=== PATIENT | male | born 1990 | race Hispanic/Latino ===

== ENCOUNTER 2017-06-10 01:22 | Inpatient (IN) | payer MEDICAID ==
[2017-06-10 01:23] VITALS: BMI 37.6
[2017-06-10 02:36] LABS: BASO # 0.1 K/uL (0.0-0.2); BASO % 0.6 % (0.0-2.0); EOS # 0.5 K/uL (0.0-0.7); EOS % 5.7 % (0.0-4.0); HEMATOCRIT 40.8 % (35.0-51.0); LYMPH # 3.7 K/uL (1.0-4.3); LYMPH % 41.2 % (20.0-40.0); MEAN CORPUSCULAR HEMOGLOBIN 31.7 pg (27.0-31.0); MEAN CORPUSCULAR HGB CONC 33.7 g/dL (33.0-37.0); MEAN PLATELET VOLUME 7.1 fL (7.2-11.7); MONO # 0.7 K/uL (0.0-0.8); NRBC % 0.1 % (0.0-2.0); RED CELL DISTRIBUTION WIDTH 14.3 % (11.5-14.5); WHITE BLOOD COUNT 8.9 K/uL (4.8-10.8)
[2017-06-10 02:41] LABS: CHLORIDE 101 mmol/L (98-107)
[2017-06-10 02:42] LABS: POTASSIUM 3.9 mmol/L (3.6-5.2); SODIUM 138 mmol/L (132-148)
[2017-06-10 02:44] LABS: ALKALINE PHOSPHATASE 61 U/L (38-126); AST/SGOT 23 U/L (17-59); BILIRUBIN,TOTAL 0.2 mg/dL (0.2-1.3); CARBON DIOXIDE 26 mmol/L (22-30); GFR AFRICAN-AMERICAN > 60; TOTAL PROTEIN 7.6 g/dL (6.3-8.3)
[2017-06-10 02:45] LABS: ALCOHOL SERUM < 10 mg/dl (0-10); ALT/SGPT 55 U/L (21-72); BLOOD UREA NITROGEN 9 mg/dL (9-20); CALCIUM 9.1 mg/dl (8.6-10.4); GLUCOSE,RANDOM 89 mg/dL (75-110)
[2017-06-10 03:11] LABS: RBC URINE 2 /hpf (0-3); URINE BILIRUBIN NEGATIVE (NEGATIVE); URINE BLOOD NEGATIVE (NEGATIVE); URINE COLOR Yellow (YELLOW); URINE GLUCOSE (UA) NORMAL (Normal); URINE KETONE NEGATIVE (NEGATIVE); URINE LEUKOCYTE ESTERASE NEG Leu/uL (Negative); URINE PROTEIN NEGATIVE (NEGATIVE); URINE UROBILINOGEN NORMAL mg/dL (0.2-1.0); WBC URINE 1 /hpf (0-5)
--- NOTE | 2017-06-10 03:50 | C.PDOC ---
History Of Present Illness 26 year old male who presents to the ER with a complaint of suicidal ideation with plan to overdose or cut his wrist. Patient reports he has not taken his psych medications in 3 months; denies physical complaints at this time. Time Seen by Provider: 06/10/17 02:16 Chief Complaint (Nursing): Psychiatric Evaluation History Per: Patient History/Exam Limitations: no limitations Onset/Duration Of Symptoms: Days Current Symptoms Are (Timing): Still Present Suicide/Self Injury Attempted (Context): None Modifying Factor(s): None Associated Symptoms: Suicidal Thoughts, Suicidal Plan Involuntary Hold By: None Recent travel outside of the [place]: No Past Medical History Reviewed: Historical Data, Nursing Documentation, Vital Signs Vital Signs: Last Vital Signs Temp 98.2 F 06/10/17 01:57 Pulse 77 06/10/17 01:57 Resp 14 06/10/17 01:57 BP 106/68 06/10/17 01:57 Pulse Ox 96 06/10/17 04:21 - Medical History PMH: Anxiety, Bipolar Disorder, Depression, Hypercholesterolemia (denied), Post Traumatic Stress Disorder, Schizophrenia Surgical History: No Surg Hx - [facility] Procedures DETOXIFICATION SERVICES FOR SUBSTANCE ABUSE TREATMENT (09/20/16) GROUP RESTRIKE HAMMER OPERATOR FOR SUBSTANCE ABUSE TREATMENT, PSYCHOEDUCATION (06/14/16) GROUP PSYCHOTHERAPY (09/20/16) INDIV RESTRIKE HAMMER OPERATOR FOR SUBSTANCE ABUSE TREATMENT, PSYCHOEDUCATION (07/18/15) INDIV PSYCHOTHERAPY FOR SUBSTANCE ABUSE TREATMENT, SUPPORT (12/06/15) INDIVIDUAL PSYCHOTHERAPY, BEHAVIORAL (08/30/16) INDIVIDUAL PSYCHOTHERAPY, SUPPORTIVE (09/20/16) MEDICATION MANAGEMENT (09/20/16) MEDS MGMT FOR SUBSTANCE ABUSE TREATMENT, METHADONE MAINT (07/18/15) Family History: States: Unknown Family Hx - Social History Hx Tobacco Use: Yes (1 pack a day) Hx Alcohol Use: No Hx Substance Use: Yes - Immunization History Hx Tetanus Toxoid Vaccination: No Hx Influenza Vaccination: Yes Hx Pneumococcal Vaccination: No Review Of Systems Constitutional: Negative for: Fever, Chills Gastrointestinal: Negative for: Nausea, Vomiting, Diarrhea Psych: Positive for: Suicidal ideation (w/ plan) Physical Exam - Physical Exam Appears: Non-toxic, No Acute Distress Skin: Normal Color, Warm, Dry Head: Atraumatic, Normacephalic Oral Mucosa: Moist Chest: Symmetrical Cardiovascular: Rhythm Regular Respiratory: Normal Breath Sounds, No Rales, No Rhonchi, No Wheezing Neurological/Psych: Oriented x3, Normal Speech, Normal Cognition ED Course And Treatment - Laboratory Results Result Diagrams: 06/10/17 02:31 06/10/17 02:31 O2 Sat by Pulse Oximetry: 96 (room air) Pulse Ox Interpretation: Normal Progress Note: Blood work and urinalysis ordered. Crisis notified. PT IS MEDICALLY CLEARED FOR PSYCHIATRIC EVALUATION AND ADMISSION. Pt was evaluated by Crisis counselor Romeo and will be admitted to psychiatry under Dr Glass Disposition - Disposition Disposition: HOSPITALIZED Disposition Time: 04:45 Condition: STABLE Forms: Andrew Alliance (British) - POA Present On Arrival: Cath Associated UTI - Clinical Impression Clinical Impression: Moderate major depression, single episode, Opioid abuse, Cocaine abuse - Scribe Statement The provider has reviewed the documentation as recorded by the Scribandrea Jeong All medical record entries made by the Scribe were at my direction and personally dictated by me. I have reviewed the chart and agree that the record accurately reflects my personal performance of the history, physical exam, medical decision making, and the department course for this patient. I have also personally directed, reviewed, and agree with the discharge instructions and disposition.
[2017-06-10 06:54] VITALS: O2SAT 99
[2017-06-10 08:13] VITALS: BP 128/87; PULSE 81; RESP 18; TEMP 98.4
--- NOTE | 2017-06-10 12:21 | PCM.PSYCH ---
Initial Psychiatric Evaluation - Initial Psychiatric Evaluation Type of Admission: Voluntary Legal Status: Capacity Current Medications: Active Medications Generic Name Dose Route Start Last Admin Trade Name Freq PRN Reason Stop Dose Admin Aripiprazole 5 mg 06/10/17 10:00 06/10/17 11:25 Abilify PO 5 mg DAILY TRAVIS Administration Benztropine Mesylate 2 mg 06/10/17 04:56 Cogentin PO Q6 PRN Extra Pyramidal Symptoms Clonidine HCl 0.1 mg 06/10/17 04:56 Catapres PO Q8 PRN COWS Score More or Equal to 5 Gabapentin 300 mg 06/10/17 10:00 06/10/17 11:24 Neurontin PO 300 mg TID TRAVIS Administration Haloperidol Lactate 5 mg 06/10/17 04:56 Haldol IM Q8 PRN severe Agitation Hydroxyzine HCl 25 mg 06/10/17 04:56 Atarax PO Q6 PRN Anxiety Ibuprofen 400 mg 06/10/17 04:56 Motrin Tab PO Q6 PRN Pain, moderate (4-7) Loperamide HCl 2 mg 06/10/17 04:56 Imodium PO Q8 PRN Diarrhea Mirtazapine 15 mg 06/10/17 22:00 Remeron PO HS TRAVIS Ondansetron HCl 4 mg 06/10/17 04:56 Zofran Tab PO Q8 PRN Nausea/Vomiting Past Psychiatric History - Past Psychiatric History Previous Treatment History: Inpatient Pertinent Medical Hx (Current Medical&Sleep Prob, Allergies): Allergies Allergy/AdvReac Type Severity Reaction Status Date / Time Penicillins Allergy Verified 06/10/17 02:02 Review of Systems - Neurological Neurological: UNREMARKABLE - Psychiatric Psychiatric: Abnormal Sleep Pattern, Anhedonia, Anxiety, Depression, Difficulty Concentrating, Irritability. absent: Hallucinations, Homicidal Ideation, Paranoia, Suicidal Ideation Mental Status Examination - Personal Presentation Personal Presentation: Looks older than stated age - Affect Affect: Constricted - Motor Activity Motor Activity: Calm - Reliability in Providing Information Reliability in Providing Information: Fair - Speech Speech: Organized - Mood Mood: Depressed, Anxious - Formal Thought Process Formal Thought Process: No Impairment - Cognitive Functions Orientation: Person, Place, Situation, Time Sensorium: Alert Estimate of Intelligence: Average Judgement: Intact, as evidence by: Insight regarding need for hospitalization Memory: Recent intact, as evidence by: Ability to recall events of the day, Remote intact, as evidenced by: Abilit to recall sig. 

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
[2017-06-10] MEDS ORDERED: Clindamycin 300 MG in Sodium Chloride 0.9% 50 ML IVPB SCH (12:45)
--- NOTE | 2017-06-10 17:18 | PCM.PYCHDC ---
Mental Status Examination - Mental Status Examination Orientation: Person, Place, Situation, Time Memory: Impaired Mood: Depressed, Anxious Affect: Constricted Speech: Appropriate Attention: WNL Concentration: Poor Association: WNL Fund of Knowledge: WNL Formal Thought Process: No Impairment Suicidal Ideation: No Current Homicidal Ideation?: No Discharge Summary - Discharge Note Reason for Hospitalization: Suicidal thoughts, depression, heroin detox Laboratory Data: Abnormal Lab Results 06/10/17 06/10/17 06/10/17 02:31 02:31 02:45 WBC 8.9 RBC 4.34 L Hgb 13.8 D Hct 40.8 MCV 94.0 MCH 31.7 H MCHC 33.7 RDW 14.3 Plt Count 353 MPV 7.1 L Neut % (Auto) 44.5 L Lymph % (Auto) 41.2 H [place] % (Auto) 8.0 Eos % (Auto) 5.7 H Baso % (Auto) 0.6 Neut # 4.0 Lymph # 3.7 [place] # 0.7 Eos # 0.5 Baso # 0.1 Sodium 138 Potassium 3.9 Chloride 101 Carbon Dioxide 26 Anion Gap 14 BUN 9 Creatinine 0.5 L Est GFR ( Amer) > 60 Est GFR (Non-Af Amer) > 60 Random Glucose 89 Calcium 9.1 Total Bilirubin 0.2 AST 23 ALT 55 Alkaline Phosphatase 61 Total Protein 7.6 Albumin 3.9 Globulin 3.7 Albumin/Globulin Ratio 1.0 Urine Color Yellow Urine Clarity Hazy Urine pH 7.0 Ur Specific [place] 1.025 Urine Protein Negative Urine Glucose (UA) Normal Urine Ketones Negative Urine Blood Negative Urine Nitrate Negative Urine Bilirubin Negative Urine Urobilinogen Normal Ur Leukocyte Esterase Neg Urine WBC (Auto) 1 Urine RBC (Auto) 2 Amorphous Sediment Few H Urine Opiates Screen Urine Methadone Screen Ur Barbiturates Screen Ur Phencyclidine Scrn Ur Amphetamines Screen U Benzodiazepines Scrn U Oth Cocaine Metabols U Cannabinoids Screen Alcohol, Quantitative < 10 06/10/17 02:45 WBC RBC Hgb Hct MCV MCH MCHC RDW Plt Count MPV Neut % (Auto) Lymph % (Auto) [place] % (Auto) Eos % (Auto) Baso % (Auto) Neut # Lymph # [place] # Eos # Baso # Sodium Potassium Chloride Carbon Dioxide Anion Gap BUN Creatinine Est GFR ( Amer) Est GFR (Non-Af Amer) Random Glucose Calcium Total Bilirubin AST ALT Alkaline Phosphatase Total Protein Albumin Globulin Albumin/Globulin Ratio Urine Color Urine Clarity Urine pH Ur Specific [place] Urine Protein Urine Glucose (UA) Urine Ketones Urine Blood Urine Nitrate Urine Bilirubin Urine Urobilinogen Ur Leukocyte Esterase Urine WBC (Auto) Urine RBC (Auto) Amorphous Sediment Urine Opiates Screen Positive H Urine Methadone Screen Negative Ur Barbiturates Screen Negative Ur Phencyclidine Scrn Negative Ur Amphetamines Screen Negative U Benzodiazepines Scrn Positive U Oth Cocaine Metabols Positive H U Cannabinoids Screen Negative Alcohol, Quantitative Consultations:: List each consultation separately and include: 1. Reason for request. 2. Findings. 3. Follow-up Summary of Hospital Course include:: 1. Description of specific treatment plan utilized for patients during their course of treatmen. 2. Summarize the time- course for resolution of acute symptoms and/or regressed behaviors. 3. Describe issues identified and worked on during hospitalization. 4. Describe medication utilized. 5. Describe medical problems identified and treated. 6. Reassessment of suicide risk - Final Diagnosis (DSM 5) Condition upon Discharge: STABLE DSM 5: Bipolar 1 d/o - severe/depressed Opioid withdrawal Opioid use d/o - severe Cocaine use d/o - severe Personality d/o - unspecified with borderline traits Disposition: AGAINST MEDICAL ADVICE
[2017-06-11] MEDS ORDERED: Saccharomyces Boulardi 250 mg Cap PO SCH (06:00)
[2017-06-11] MEDS ORDERED: buPROPion 150 mg/24 Hours XL Tab PO SCH (10:00)
[2017-06-11] MEDS ORDERED: Pantoprazole 40 mg EC Tab PO SCH (10:00)
== END 2017-06-10 14:45 | disposition left against medical advice (07) | DRG 430 ==
LOC: C.ER 01:22 → C.9E 04:52 → C.5E 06:59
PROVIDERS: ADMIT Psychiatry & Neurology Psychiatry; ATTEND Psychiatry & Neurology Psychiatry
DX: F31.4 Bipolar disorder, current episode depressed, severe, without psychotic features (principal); R45.851 Suicidal ideations; F11.23 Opioid dependence with withdrawal; F14.10 Cocaine abuse, uncomplicated; L02.412 Cutaneous abscess of left axilla; F43.10 Post-traumatic stress disorder, unspecified; F17.210 Nicotine dependence, cigarettes, uncomplicated; F60.3 Borderline personality disorder

== ENCOUNTER 2017-09-28 22:30 | Inpatient (IN) | payer MEDICAID, OTHER ==
[2017-09-28 22:30] VITALS: BMI 37.6
--- NOTE | 2017-09-28 23:10 | C.PDOC ---
History Of Present Illness patient states that he has not been taking his schizophrenia medication and wanted to overdose on heroin and xanax. Speaking in complete sentences. Denies any homicidal ideation. Time Seen by Provider: 09/28/17 23:10 Chief Complaint (Nursing): Psychiatric Evaluation History Per: Patient History/Exam Limitations: no limitations Onset/Duration Of Symptoms: Days Current Symptoms Are (Timing): Still Present Suicide/Self Injury Attempted (Context): Ingestion (heroin and xanax) Modifying Factor(s): Narcotics Severity: Moderate Pain Scale Rating Of: 4 Associated Symptoms: Depression, Suicidal Thoughts Involuntary Hold By: None Recent travel outside of the [place]: No Additional History Per: Patient Past Medical History Reviewed: Historical Data, Nursing Documentation, Vital Signs Vital Signs: Last Vital Signs Temp 97.6 F 09/29/17 05:50 Pulse 84 09/29/17 05:50 Resp 14 09/29/17 05:50 BP 96/54 L 09/29/17 05:50 Pulse Ox 97 09/29/17 05:50 - Medical History PMH: Anxiety, Bipolar Disorder, Depression, Hypercholesterolemia (denied), Post Traumatic Stress Disorder, Schizophrenia Denies: Asthma (denied but pt smokes 1 pack daily), Diabetes, Hepatitis, HIV , HTN, Chronic Kidney Disease, Seizures, Sexually Transmitted Disease - [facility] Procedures DETOXIFICATION SERVICES FOR SUBSTANCE ABUSE TREATMENT (09/20/16) GROUP DISPLAY MECHANIC FOR SUBSTANCE ABUSE TREATMENT, PSYCHOEDUCATION (06/14/16) GROUP PSYCHOTHERAPY (09/20/16) INDIV DISPLAY MECHANIC FOR SUBSTANCE ABUSE TREATMENT, PSYCHOEDUCATION (07/18/15) INDIV PSYCHOTHERAPY FOR SUBSTANCE ABUSE TREATMENT, SUPPORT (12/06/15) INDIVIDUAL PSYCHOTHERAPY, BEHAVIORAL (08/30/16) INDIVIDUAL PSYCHOTHERAPY, SUPPORTIVE (09/20/16) MEDICATION MANAGEMENT (09/20/16) MEDS MGMT FOR SUBSTANCE ABUSE TREATMENT, METHADONE MAINT (07/18/15) Family History: States: No Known Family Hx - Social History Hx Tobacco Use: Yes (1 pack a day) Hx Alcohol Use: Yes Hx Substance Use: Yes - Immunization History Hx Tetanus Toxoid Vaccination: No Hx Influenza Vaccination: Yes Hx Pneumococcal Vaccination: No Review Of Systems Constitutional: Negative for: Fever, Chills Eyes: Negative for: Redness ENT: Negative for: Throat Pain Cardiovascular: Negative for: Chest Pain Respiratory: Negative for: Shortness of Breath Gastrointestinal: Negative for: Nausea Musculoskeletal: Negative for: Back Pain Skin: Negative for: Rash Neurological: Negative for: Weakness Psych: Positive for: Depression, Suicidal ideation Physical Exam - Physical Exam Appears: Non-toxic Skin: Warm, Dry Head: Normacephalic Eye(s): bilateral: Normal Inspection Oral Mucosa: Moist Neck: Supple Chest: Symmetrical Cardiovascular: Rhythm Regular Respiratory: No Rales, No Rhonchi, No Wheezing Gastrointestinal/Abdominal: Soft, No Tenderness, No Distention Back: No CVA Tenderness Extremity: Normal ROM Extremity: Bilateral: Atraumatic Neurological/Psych: Oriented x3 Gait: Steady ED Course And Treatment - Laboratory Results Result Diagrams: 09/28/17 23:15 09/28/17 23:15 ECG: Interpreted By Me, Viewed By Me ECG Rhythm: Sinus Rhythm (87), 1st Degree HB, Nonspecific Changes O2 Sat by Pulse Oximetry: 97 Pulse Ox Interpretation: Normal - Radiology CXR: Interpreted by Me, Viewed By Me Progress Note: 3am vitals stable, arousable. 5:20 am arousable, vitals stable, no complaints. awaiting psych eval Disposition Discussed With DrJuventino: Irene Glass Comment: accepted the pt on her service and took over the care at 6:40 AM Doctor Will See Patient In The: Hospital Counseled Patient/Family Regarding: Studies Performed, Diagnosis - Disposition Disposition: HOSPITALIZED Disposition Time: 23:10 Condition: FAIR Forms: [facility] ([place]ux[place]ish) - POA Present On Arrival: None - Clinical Impression Clinical Impression: Depression, Opioid abuse Decision To Admit - Pt Status Changed To: Hospital Disposition Of: Inpatient - Admit Certification Admit to Inpatient:: After my assessment, the patient will require hospitalization for at least two midnights. This is because of the severity of symptoms shown, intensity of services needed, and/or the medical risk in this patient being treated as an outpatient. - InPatient: Physician Admission Certification: I certify that this patient requires 2 or more midnights of care for the following reason:: After my assessment, the patient will require hospitalization for at least two midnights. This is because of the severity of symptoms shown, intensity of services needed, and/or the medical risk in this patient being treated as an outpatient. - . Bed Request Type: Psychiatry Admitting Physician: Irene Glass Patient Diagnosis: Depression, Opioid abuse
[2017-09-28 23:21] LABS: BASO # 0.1 K/uL (0.0-0.2); BASO % 0.6 % (0.0-2.0); EOS # 0.3 K/uL (0.0-0.7); EOS % 3.4 % (0.0-4.0); HEMOGLOBIN 13.8 g/dL (12.0-18.0); LYMPH # 4.5 K/uL (1.0-4.3); LYMPH % 48.3 % (20.0-40.0); MEAN CELL VOLUME 94.6 fL (80.0-94.0); MEAN CORPUSCULAR HEMOGLOBIN 33.4 pg (27.0-31.0); MEAN CORPUSCULAR HGB CONC 35.3 g/dL (33.0-37.0); MEAN PLATELET VOLUME 6.8 fL (7.2-11.7); MONO # 0.7 K/uL (0.0-0.8); MONO % 7.6 % (0.0-10.0); NEUT # 3.7 K/uL (1.8-7.0); NEUT % 40.1 % (50.0-75.0); NRBC % 0.1 % (0.0-2.0); RBC 4.12 Mil/uL (4.40-5.90); RED CELL DISTRIBUTION WIDTH 13.8 % (11.5-14.5); WHITE BLOOD COUNT 9.2 K/uL (4.8-10.8)
[2017-09-28 23:31] LABS: ALB/GLOB RATIO 1.4 (1.0-2.1); ALBUMIN 4.2 g/dL (3.5-5.0); ALT/SGPT 54 U/L (21-72); AST/SGOT 38 U/L (17-59); BLOOD UREA NITROGEN 17 mg/dL (9-20); CALCIUM 8.9 mg/dl (8.6-10.4); GFR AFRICAN-AMERICAN > 60; GFR NON-AFRICAN AMERICAN > 60
[2017-09-28 23:34] LABS: BARBITURATES, UR NEGATIVE (NEGATIVE); PHENCYCLIDINE, UR NEGATIVE (NEGATIVE)
[2017-09-28 23:40] LABS: BENZODIAZEPINES, UR POSITIVE (NEGATIVE); OPIATES, UR POSITIVE (NEGATIVE)
[2017-09-29 04:53] LABS: ACETAMINOPHEN < 10.0 ug/mL (10.0-30.0); SALICYLATE < 1.0 mg/dL 1
[2017-09-29] MEDS ORDERED: buPROPion 150 mg/24 Hours XL Tab PO SCH (10:00)
--- NOTE | 2017-09-29 14:34 | PCM.BM ---
<Kami Singleton - Last Filed: 09/29/17 14:32> Treatment Plan Problems - Problems identified on initial assessmt Substance Abuse Date Initiated: 09/29/17 Time Initiated: 09:00 Assessment reference: NA Status: Active Treatment assets and liabiliti Patient Assests: cooperative, resourceful, ADL independent Patient Liabilities: live alone, substance abuse (Heroin and Xanax) - Milieu Protocol Maintain good personal hygiene: daily Encourage regular showers, daily Remind patient to perform daily oral care, daily Assist patient to perform ADL's (Self) Conduct patient checks and document Observation sheet: Q15 minutes (Safety) Maintain personal safety: every shift Educate patient to report safety concerns to staff, every shift Monitor environment for contraband/sharps Medication safety: Monitor for expected outcome, potential side effects: every shift, Assess barriers to learning: every shift, Assess readiness for medication education: every shift <VikramDione - Last Filed: 09/30/17 11:17> Family Contact Family involvement: Famliy/SO not involved - Goals for Treatment Patient goals for treatment: "I want to go to a methadone clinic." Discharge/Continuing Care - Education Needs Education Needs: Patient Medication, Patient Coping Skills, Patient Community resources - Discharge Discharge Criteria: Tolerates medication w/o severe side effects, No longer exhibiting s/s of withdrawal, Reduction of target symptoms Discharge to:: Home - Treatment Team Participation Discussed with Family/SO: No Was Patient/Family/SO present at Treatment Team Meeting: Yes <Tavia Nguyen - Last Filed: 10/01/17 12:42> - Diagnosis (1) Opioid abuse Status: Acute Interventions: 10/01/17 12:42 * Assess 7x/week regarding severity of withdrawal * Educate regarding risks, benefits, side effects and alternatives of medications * Use Motivational Interviewing for abstinence * Use CBT for relapse prevention * Medication management for withdrawal symptoms * Encourage medication assisted treatment * (2) Bipolar disorder Status: Acute Interventions: 10/01/17 12:42 * Assess/adjust medications daily and /or as needed * See patient on an individual basis 7x/week to assess level of manic behaviors and stability * Discuss risks, benefits, side effects and alternatives of medications * (3) Cocaine abuse Status: Acute Interventions: 10/01/17 12:42 * Assess 7x/week regarding severity of withdrawal * Educate regarding risks, benefits, side effects and alternatives of medications * Use Motivational Interviewing for abstinence * Use CBT for relapse prevention * Medication management for withdrawal symptoms * Encourage medication assisted treatment *
--- NOTE | 2017-09-29 20:56 | CARD ---
APPROVED REPORT EKG Measurement Heart [id number] <Conclusion> Normal sinus rhythm Normal ECG
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
[2017-09-30 08:32] VITALS: RESP 16; TEMP 97.5; O2SAT 98
--- NOTE | 2017-09-30 17:40 | PCM.PYCHPN ---
Psychiatric Progress Note - Psychiatric Progress Note Patient seen today, length of contact: 16 min Patient Chief Complaint: "I am anxious" Problems Identified/Issues Discussed: The pt is seen, chart reviewed, case discussed with staff. The pt is compliant with medications and reports no side-effects. Symptoms are improving but needs more time to stabilize. After care discussed, support and psychoeducation given. He asked for a letter for his court date and probation as he didn't want to lose his school. Still easily irate and goes from zero to ten quickly, impatient and offended easily, entitled at times. Medication Change: Yes (detox changes daily) Medical Record Reviewed: Yes Mental Status Examination - Cognitive Function Orientation: Person, Place, Situation, Time Memory: Intact Attention: WNL Concentration: WNL Association: WNL Fund of Knowledge: WNL - Mood Mood: Depressed, Anxious - Affect Affect: Constricted - Speech Speech: Appropriate - Formal Thought Process Formal Thought Process: No Impairment - Suicidal Ideation Suicidal Ideation: No - Homicidal Ideation Homicidal Ideation: No Goal/Treatment Plan - Goal/Treatment Plan Need for Continued Stay: Discharge may exacerbated symptoms, Severe functional impairment Progress Toward Problem(s) and Goals/Treatment Plan: Methadone and librium detox Wellbutrin is held due to s/z risk Remeron for depression As needed medications Gabapentin for augmentation All risks, benefits and alternatives of medications, including no medications, discussed and the patient understood and agreed. Attend groups and activities Supportive therapy and psychoeducation [place] for abstinence CBT for relapse prevention Encourage MAT Refer to rehab or IOP Attend self-help groups as well Estimated Date of D/C: 10/03/17
--- NOTE | 2017-10-01 20:04 | PCM.PYCHPN ---
Psychiatric Progress Note - Psychiatric Progress Note Patient seen today, length of contact: 15 minutes Patient Chief Complaint: Can I get more methadone. Problems Identified/Issues Discussed: Patient seen, chart reviewed, case discussed with the staff. Issues related to illness and treatment were discussed with the patient. Reported compliant with treatment with no adverse affects. Requesting more methadone. Also requesting for prazosin, patient was getting prazosin during his previous admissions. Confirmed and started prazosin 1 mg at bedtime. Aftercare discussed with the patient. Patient wants to go to [facility] follow-up care after discharge from the hospital. Risk time of evaluation, patient was awake alert oriented 3, had no delusions, no auditory or visual hallucinations, no suicidal ideations or homicidal ideations. Medical Problems: Asthma Diagnostic Results: Reviewed DSM 5 Symptoms Update: Improving with treatment Medication Change: Yes (Started prazosin 1 mg at bedtime) Medical Record Reviewed: Yes Mental Status Examination - Cognitive Function Orientation: Person, Place, Situation, Time Memory: Intact Attention: WNL Concentration: WNL Association: WNL Fund of Knowledge: [facility] Decription of patient's judgement and insights: Fair - Mood Mood: Anxious - Affect Affect: Other (Appropriate) - Speech Speech: Appropriate - Formal Thought Process Formal Thought Process: No Impairment Psychotic Thoughts and Behaviors: None - Suicidal Ideation Suicidal Ideation: No - Homicidal Ideation Homicidal Ideation: No Goal/Treatment Plan - Goal/Treatment Plan Need for Continued Stay: Remain at risks for inpatient hospitalization, Discharge may exacerbated symptoms, Severe functional impairment Progress Toward Problem(s) and Goals/Treatment Plan: Patient education Supportive therapy Motivational interview for abstinence CBT for relapse prevention Continue treatment as before Estimated Date of D/C: 10/03/17 - Smoking Cessation Smoking Cessation Initiated: No
[2017-10-02] MEDS ORDERED: DiphenhydrAMINE 50 mg/ml Inj ONE (11:22)
[2017-10-02] MEDS ORDERED: DiphenhydrAMINE 50 mg/ml Inj IM STA (11:27)
--- NOTE | 2017-10-02 14:00 | PCM.PYCHPN ---
Psychiatric Progress Note - Psychiatric Progress Note Patient seen today, length of contact: 15 minutes Patient Chief Complaint: I still feeling anxiety. Problems Identified/Issues Discussed: Patient seen, chart reviewed, case discussed with the staff. Issues related to illness and treatment were discussed with the patient. Reported compliant with treatment with no adverse affects. Patient reported still feeling anxious. It appears that patient has drug seeking behavior. Today patient was asking for Benadryl and Cogentin. While nurse was preferring medication, patient became angry, started cursing and threatening psychiatrist and staff. Called security. Later patient became calm. Aftercare discussed with the patient. Patient wants to go to [facility] follow-up care after discharge from the hospital. Risk time of evaluation, patient was awake alert oriented 3, had no delusions, no auditory or visual hallucinations, no suicidal ideations or homicidal ideations. Medical Problems: Asthma Diagnostic Results: Reviewed DSM 5 Symptoms Update: Improving with treatment Medication Change: No Medical Record Reviewed: Yes Mental Status Examination - Cognitive Function Orientation: Person, Place, Situation, Time Memory: Intact Attention: WNL Concentration: WNL Association: WN Fund of Knowledge: [facility] Decription of patient's judgement and insights: Fair - Mood Mood: Anxious - Affect Affect: Other (Appropriate) - Speech Speech: Appropriate - Formal Thought Process Formal Thought Process: No Impairment Psychotic Thoughts and Behaviors: None - Suicidal Ideation Suicidal Ideation: No - Homicidal Ideation Homicidal Ideation: No Goal/Treatment Plan - Goal/Treatment Plan Need for Continued Stay: Remain at risks for inpatient hospitalization, Discharge may exacerbated symptoms, Severe functional impairment Progress Toward Problem(s) and Goals/Treatment Plan: Patient education Supportive therapy Motivational interview for abstinence CBT for relapse prevention Continue treatment as before. Patient wants to go to [facility] after discharge from the hospital for follow-up care. Estimated Date of D/C: 10/03/17 - Smoking Cessation Smoking Cessation Initiated: No
[2017-10-02 16:01] VITALS: BP 116/71; PULSE 108
[2017-10-02] MEDS ORDERED: Aluminum Hydroxide/Magnesium Hydroxide Susp (30 mL) PO ONE (16:35)
== END 2017-10-03 05:40 | disposition home or self-care (01) | DRG 430 ==
LOC: C.ER 22:30 → C.5E 09-29 06:46
PROVIDERS: ADMIT Psychiatry & Neurology Psychiatry; ATTEND Psychiatry & Neurology Psychiatry
PROC: GZ3ZZZZ Medication Management (ICD-10-PCS; principal; 2017-09-29)
PROC: HZ89ZZZ Medication Management for Substance Abuse Treatment, Other Replacement Medication (ICD-10-PCS; 2017-09-29)
PROC: HZ2ZZZZ Detoxification Services for Substance Abuse Treatment (ICD-10-PCS; 2017-09-29)
PROC: GZHZZZZ Group Psychotherapy (ICD-10-PCS; 2017-09-29)
PROC: GZ56ZZZ Individual Psychotherapy, Supportive (ICD-10-PCS; 2017-09-29)
DX: F31.30 Bipolar disorder, current episode depressed, mild or moderate severity, unspecified (principal); F11.220 Opioid dependence with intoxication, uncomplicated; F14.10 Cocaine abuse, uncomplicated; F31.9 Bipolar disorder, unspecified; F41.9 Anxiety disorder, unspecified; J45.909 Unspecified asthma, uncomplicated; F60.3 Borderline personality disorder; F60.2 Antisocial personality disorder; F17.210 Nicotine dependence, cigarettes, uncomplicated; Z76.5 Malingerer [conscious simulation]; Z81.8 Family history of other mental and behavioral disorders

== ENCOUNTER 2018-01-10 06:45 | Inpatient (IN) | payer MEDICAID, OTHER ==
[2018-01-10 06:45] VITALS: BMI 37.6
[2018-01-10 06:52] VITALS: O2SAT 97
[2018-01-10 07:38] LABS: BASO # 0.1 K/uL (0.0-0.2); BASO % 0.8 % (0.0-2.0); EOS # 0.2 K/uL (0.0-0.7); EOS % 1.7 % (0.0-4.0); HEMOGLOBIN 12.7 g/dL (12.0-18.0); LYMPH # 7.5 K/uL (1.0-4.3); LYMPH % 68.8 % (20.0-40.0); MEAN CELL VOLUME 93.1 fL (80.0-94.0); MEAN CORPUSCULAR HGB CONC 35.5 g/dL (33.0-37.0); MEAN PLATELET VOLUME 6.8 fL (7.2-11.7); MONO % 8.7 % (0.0-10.0); NEUT # 2.2 K/uL (1.8-7.0); NRBC % 0.1 % (0.0-2.0); RBC 3.85 Mil/uL (4.40-5.90); RED CELL DISTRIBUTION WIDTH 14.5 % (11.5-14.5); WHITE BLOOD COUNT 10.9 K/uL (4.8-10.8)
[2018-01-10 07:43] LABS: URINE BILIRUBIN NEGATIVE (NEGATIVE); URINE BLOOD NEGATIVE (NEGATIVE); URINE CLARITY Hazy (Clear); URINE COLOR Amber (YELLOW); URINE GLUCOSE (UA) NORMAL (Normal); URINE LEUKOCYTE ESTERASE NEG Leu/uL (Negative); URINE PROTEIN NEGATIVE (NEGATIVE)
[2018-01-10 08:02] LABS: ALB/GLOB RATIO 1.1 (1.0-2.1); ALBUMIN 3.7 g/dL (3.5-5.0); ALT/SGPT 75 U/L (21-72); AST/SGOT 42 U/L (17-59); BLOOD UREA NITROGEN 10 mg/dL (9-20); CALCIUM 8.4 mg/dl (8.6-10.4); GFR AFRICAN-AMERICAN > 60; GFR NON-AFRICAN AMERICAN > 60
[2018-01-10 08:24] LABS: BARBITURATES, UR NEGATIVE (NEGATIVE); PHENCYCLIDINE, UR NEGATIVE (NEGATIVE)
[2018-01-10 09:01] LABS: BENZODIAZEPINES, UR POSITIVE (NEGATIVE); OPIATES, UR POSITIVE (NEGATIVE)
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
--- NOTE | 2018-01-10 12:17 | PCM.BM ---
<Natalya Walton - Last Filed: 01/10/18 12:15> Treatment Plan Problems - Problems identified on initial assessmt Depression Date Initiated: 01/10/18 Time Initiated: 12:15 Assessment reference: NA Status: Active Substance Abuse Date Initiated: 01/10/18 Time Initiated: 12:15 Assessment reference: NA Status: Active Treatment assets and liabiliti Patient Assests: adapts well, cooperative, resourceful, self-reliant, ADL independent, physically healthy, negotiates basic needs, cognitively intact Patient Liabilities: live alone (Lives with girlfriend), financial problems, substance abuse (Hx Cocaine, Opiates), medical problems - Milieu Protocol Maintain good personal hygiene: daily Encourage regular showers, daily Remind patient to perform daily oral care, daily Assist patient to perform ADL's (Self) Conduct patient checks and document Observation sheet: Q15 minutes (Safety) Maintain personal safety: every shift Educate patient to report safety concerns to staff, every shift Monitor environment for contraband/sharps Medication safety: Monitor for expected outcome, potential side effects: every shift, Assess barriers to learning: every shift, Assess readiness for medication education: every shift <Juliocesar Alejandro - Last Filed: 01/11/18 10:54> - Diagnosis (1) Bipolar disorder Status: Acute Interventions: 01/11/18 10:54 * Assess/adjust medications daily and /or as needed * See patient on an individual basis 7x/week to assess level of manic behaviors and stability * Discuss risks, benefits, side effects and alternatives of medications * (2) Opioid abuse Status: Acute Interventions: 01/11/18 10:54 * Assess 7x/week regarding severity of withdrawal * Educate regarding risks, benefits, side effects and alternatives of medications * Use Motivational Interviewing for abstinence * Use CBT for relapse prevention * Medication management for withdrawal symptoms * Encourage medication assisted treatment * <Mare Banda - Last Filed: 01/11/18 17:19> Family Contact Family involvement: Patient does not wish Family/SO involvement Family contact: Patient declines to allow family contact at present - Goals for Treatment Patient goals for treatment: "I want to go to a rehab program." Discharge/Continuing Care - Education Needs Education Needs: Patient Medication, Patient Coping Skills, Patient Community resources - Discharge Discharge Criteria: Free of Suicidal thoughts, Normal sleep pattern, Ability to care for self, No longer exhibiting s/s of withdrawal, Reduction of target symptoms Discharge to:: Substance Abuse Rehab - Treatment Team Participation Discussed with Family/SO: No Was Patient/Family/SO present at Treatment Team Meeting: Yes
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
[2018-01-10 20:37] LABS: HEPATITIS B SURFACE AG Negative (NEGATIVE)
[2018-01-10 20:43] LABS: HEPATITIS A IGM NEGATIVE (NEGATIVE); HEPATITIS B CORE AB NEGATIVE (NEGATIVE)
[2018-01-10 22:02] LABS: HEPATITIS C ANTIBODY REACTIVE (NEGATIVE)
[2018-01-10] MEDS: Silver Sulfadiazine 1% Cream (20 gm) TOP SCH (23:13)
[2018-01-11] MEDS ORDERED: Aritificial Tears (15ml) OU PRN (00:16)
[2018-01-11] MEDS: Silver Sulfadiazine 1% Cream (20 gm) TOP SCH ×3 (00:54→17:20)
[2018-01-11 06:39] VITALS: RESP 18
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
[2018-01-11] MEDS ORDERED: Emtricitabine-Tenofovir 200 mg-300 mg Tab PO SCH (10:00)
[2018-01-11] MEDS ORDERED: Multiple Vitamins Tab PO SCH (10:00)
[2018-01-12 06:32] VITALS: BP 100/60; PULSE 65; TEMP 97.6
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
--- NOTE | 2018-01-12 10:14 | PCM.PYCHPN ---
Psychiatric Progress Note - Psychiatric Progress Note Medication Change: Yes Medical Record Reviewed: Yes Mental Status Examination - Cognitive Function Orientation: Person, Place, Situation, Time - Mood Mood: Depressed, Anxious - Affect Affect: Broad - Formal Thought Process Formal Thought Process: No Impairment - Homicidal Ideation Homicidal Ideation: No Goal/Treatment Plan - Goal/Treatment Plan Progress Toward Problem(s) and Goals/Treatment Plan: CBT for relapse prevention Encourage MAT Refer to rehab or IOP All risks, benefits and alternatives of medications, including no medications, discussed and the patient understood and agreed. Attend groups and activities Supportive therapy and psychoeducation [place] for abstinence Attend self-help groups as well Methadone taper As needed medications Gabapentin for augmentation Trazodone Ativan 1 mg prn
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
[2018-01-13] MEDS ORDERED: Pneumococcal 23-Valent Vaccine IM ONE (10:00)
== END 2018-01-12 10:13 | disposition left against medical advice (07) | DRG 430 ==
LOC: C.ER 06:45 → C.5E 11:11
PROVIDERS: ADMIT Psychiatry & Neurology Psychiatry; ATTEND Psychiatry & Neurology Psychiatry
PROC: GZ3ZZZZ Medication Management (ICD-10-PCS; principal; 2018-01-10)
PROC: GZHZZZZ Group Psychotherapy (ICD-10-PCS; 2018-01-10)
PROC: GZ56ZZZ Individual Psychotherapy, Supportive (ICD-10-PCS; 2018-01-10)
PROC: HZ2ZZZZ Detoxification Services for Substance Abuse Treatment (ICD-10-PCS; 2018-01-10)
PROC: HZ59ZZZ Individual Psychotherapy for Substance Abuse Treatment, Supportive (ICD-10-PCS; 2018-01-10)
DX: F31.63 Bipolar disorder, current episode mixed, severe, without psychotic features (principal); F11.23 Opioid dependence with withdrawal; F14.20 Cocaine dependence, uncomplicated; B18.2 Chronic viral hepatitis C; R45.851 Suicidal ideations; F43.10 Post-traumatic stress disorder, unspecified; F41.0 Panic disorder [episodic paroxysmal anxiety]; F60.2 Antisocial personality disorder; F60.3 Borderline personality disorder; F17.210 Nicotine dependence, cigarettes, uncomplicated; F20.9 Schizophrenia, unspecified; Z91.14 Patient's other noncompliance with medication regimen

== ENCOUNTER 2018-02-22 21:02 | Inpatient (IN) | payer MEDICAID ==
[2018-02-22 21:09] VITALS: BMI 27.8
[2018-02-22 21:17] VITALS: O2SAT 97
--- NOTE | 2018-02-22 21:51 | C.PDOC ---
History Of Present Illness 27yo male, history of schizophrenia, on multiple medications as prescribed by [facility], presents to ED for evaluation of feeling anxious. Patient states his medications "are not working" so he stopped using them 2 weeks ago, and now reports auditory hallucinations. Patient reports people are following him. He admits to using cocaine and heroin in an attempt to overdose; he does report suicidal ideation but denies any homicidal ideation. Patient requesting Ativan "to come down." No fever, chills, chest pain, shortness of breath and offers no other medical complaints. Time Seen by Provider: 02/22/18 21:25 Chief Complaint (Nursing): Psychiatric Evaluation History Per: Patient History/Exam Limitations: no limitations Modifying Factor(s): Narcotics, Cocaine Associated Symptoms: Anxiety, Paranoia, Suicidal Thoughts Past Medical History Reviewed: Historical Data, Nursing Documentation, Vital Signs Vital Signs: Last Vital Signs Temp 98.6 F 02/22/18 23:48 Pulse 90 02/22/18 23:48 Resp 14 02/22/18 23:48 BP 114/72 02/22/18 23:48 Pulse Ox 97 02/22/18 23:48 - Medical History PMH: Anxiety, Bipolar Disorder, Depression, Hepatitis (C), Hypercholesterolemia (denied), Post Traumatic Stress Disorder, Schizophrenia, Seizures (one after Benzo withdrawal.) Denies: Asthma (denied but pt smokes 1 pack daily), Diabetes, HIV, HTN, Chronic Kidney Disease, Sexually Transmitted Disease Surgical History: No Surg Hx - [facility] Procedures DETOXIFICATION SERVICES FOR SUBSTANCE ABUSE TREATMENT (01/10/18) GROUP RABBIT BREEDER FOR SUBSTANCE ABUSE TREATMENT, PSYCHOEDUCATION (06/14/16) GROUP PSYCHOTHERAPY (01/10/18) INDIV RABBIT BREEDER FOR SUBSTANCE ABUSE TREATMENT, PSYCHOEDUCATION (07/18/15) INDIV PSYCHOTHERAPY FOR SUBSTANCE ABUSE TREATMENT, SUPPORT (01/10/18) INDIVIDUAL PSYCHOTHERAPY, BEHAVIORAL (08/30/16) INDIVIDUAL PSYCHOTHERAPY, SUPPORTIVE (01/10/18) MEDICATION MANAGEMENT (01/10/18) MEDS MGMT FOR SUBSTANCE ABUSE TREATMENT, METHADONE MAINT (07/18/15) MEDS MGMT FOR SUBSTANCE ABUSE TREATMENT, OTH REPL MED (09/29/17) Family History: States: Unknown Family Hx - Social History Hx Tobacco Use: Yes (1 pack a day) Hx Alcohol Use: Yes Hx Substance Use: Yes (heroine and cocaine) - Immunization History Hx Tetanus Toxoid Vaccination: No Hx Influenza Vaccination: Yes Hx Pneumococcal Vaccination: No Review Of Systems Constitutional: Negative for: Fever, Chills Cardiovascular: Negative for: Chest Pain Respiratory: Negative for: Shortness of Breath Gastrointestinal: Negative for: Abdominal Pain Psych: Positive for: Anxiety, Depression, Suicidal ideation, Other (auditory hallucination) Physical Exam - Physical Exam Appears: Non-toxic, No Acute Distress, Other (calm and cooperative) Skin: Warm, Dry Head: Atraumatic, Normacephalic Eye(s): bilateral: PERRL, EOMI Oral Mucosa: Moist Neck: Normal ROM, Supple Chest: Symmetrical Cardiovascular: Rhythm Regular Respiratory: Normal Breath Sounds Gastrointestinal/Abdominal: Soft, No Tenderness Extremity: Normal ROM, No Pedal Edema, No Deformity Neurological/Psych: Oriented x3, Normal Speech, Normal Cognition, Normal Motor, Normal Sensation, Other (no active psychosis; +approrpiate response to questions.) ED Course And Treatment - Laboratory Results Result Diagrams: 02/22/18 21:59 02/22/18 21:59 Lab Interpretation: No Acute Changes O2 Sat by Pulse Oximetry: 97 (RA) Pulse Ox Interpretation: Normal Progress Note: Patient is medically cleared for psychiatric admission. Medical Decision Making Medical Decision Making: Impression: Anxiety Plan: -- Labs -- Urinalysis -- 1:1 observation Disposition - Disposition Disposition: HOSPITALIZED Disposition Time: 00:02 Condition: STABLE - POA Present On Arrival: None - Clinical Impression Clinical Impression: Cocaine abuse, Opioid abuse, Schizophrenia, Single major depressive episode, severe, with psychosis - Scribe Statement The provider has reviewed the documentation as recorded by the Randibe (Sheila Swenson) Provider Attestation: All medical record entries made by the Randibandrea were at my direction and personally dictated by me. I have reviewed the chart and agree that the record accurately reflects my personal performance of the history, physical exam, medical decision making, and the department course for this patient. I have also personally directed, reviewed, and agree with the discharge instructions and disposition.
[2018-02-22 22:03] LABS: BASO % 0.4 % (0.0-2.0); EOS # 0.1 K/uL (0.0-0.7); LYMPH # 3.6 K/uL (1.0-4.3); LYMPH % 39.8 % (20.0-40.0); MEAN CELL VOLUME 92.7 fL (80.0-94.0); MEAN CORPUSCULAR HEMOGLOBIN 31.6 pg (27.0-31.0); MEAN CORPUSCULAR HGB CONC 34.1 g/dL (33.0-37.0); MEAN PLATELET VOLUME 7.1 fL (7.2-11.7); MONO # 0.7 K/uL (0.0-0.8); MONO % 7.9 % (0.0-10.0); NEUT # 4.6 K/uL (1.8-7.0); NEUT % 50.9 % (50.0-75.0); NRBC % 0.2 % (0.0-2.0); RBC 4.83 Mil/uL (4.40-5.90); RED CELL DISTRIBUTION WIDTH 14.6 % (11.5-14.5); WHITE BLOOD COUNT 9.1 K/uL (4.8-10.8)
[2018-02-22 22:05] LABS: HEMOGLOBIN 15.3 g/dL (12.0-18.0)
[2018-02-22 22:14] LABS: URINE BACTERIA RARE (<OCC); URINE BILIRUBIN NEGATIVE (NEGATIVE); URINE BLOOD NEGATIVE (NEGATIVE); URINE CLARITY Hazy (Clear); URINE COLOR Yellow (YELLOW); URINE GLUCOSE (UA) NORMAL (Normal); URINE LEUKOCYTE ESTERASE NEG Leu/uL (Negative); URINE PROTEIN NEGATIVE (NEGATIVE); URINE UROBILINOGEN NORMAL mg/dL (0.2-1.0)
[2018-02-22 22:22] LABS: BARBITURATES, UR NEGATIVE (NEGATIVE); BENZODIAZEPINES, UR NEGATIVE (NEGATIVE); PHENCYCLIDINE, UR NEGATIVE (NEGATIVE)
[2018-02-22 22:23] LABS: OPIATES, UR POSITIVE (NEGATIVE)
[2018-02-22 22:26] LABS: ALB/GLOB RATIO 1.3 (1.0-2.1); ALT/SGPT 78 U/L (21-72); AST/SGOT 63 U/L (17-59); BLOOD UREA NITROGEN 18 mg/dL (9-20); CALCIUM 9.7 mg/dl (8.6-10.4); GFR AFRICAN-AMERICAN > 60; GFR NON-AFRICAN AMERICAN > 60
[2018-02-23 06:13] VITALS: RESP 18
--- NOTE | 2018-02-23 10:45 | PCM.PSYCH ---
Initial Psychiatric Evaluation - Initial Psychiatric Evaluation Type of Admission: Voluntary Legal Status: Capacity Chief Complaint (in patient's own words): "I am very depressed" History of Present Illness and Precipitating Events: The pt is seen, chart reviewed and case discussed He is well-known to the underwriter solicitation director from several previous admissions. He is a 27 yo WM, single, no child, highly educated but unemployed and homeless currently - stays with his mother and [id number] girlfriend who is now but he is not sure if from him, as she allegedly prostitutes for cocaine and opiates. PS. His mother also uses drugs. He says he has been on a cocaine, heroin and xanax binge again for a while. He was discharged from [facility] Methadone program after missing 3 days. He now uses 25 bags intranasal heroin, 1 gm cocaine (intranasal), 1 pint alcohol , 4 mg xanax (last use 2 days ago, utox negative), and 1 ppd cigarette. Denies all others. He reports many depressive sxs including suicidal ideation but he contracts for safety and will follow his safety plan. He also admits to feeling paranoid but he is aware that this is not normal. It is very likely due to his heavy drug use. Past psych history: bipolar type 1, polysubstance use d/o, suicide attempt. Patient has history of 7+ prior psychiatric hospitalizations, including other hospitals. PMHx: ACL tear, recent weight loss, asthma, Hep C, disc hernia, weight loss. Family history: Father and brother had opioid use disorder, depression and reportedly committed suicide. Social history: Single, has no child, no legal issues now but had in the past. Current Medications: Active Medications Generic Name Dose Route Start Last Admin Trade Name Freq PRN Reason Stop Dose Admin Chlordiazepoxide 0 mg 02/23/18 12:00 Librium PO 02/27/18 11:59 Q6 TRAVIS Taper Clonidine HCl 0.1 mg 02/23/18 10:43 Catapres PO Q4H PRN Symptoms of alcohol withdrawl Folic Acid 1 mg 02/23/18 10:45 Folic Acid PO DAILY TRAVIS Gabapentin 300 mg 02/23/18 10:00 Neurontin PO TID TRAVIS Hydroxyzine HCl 50 mg 02/23/18 01:08 02/23/18 02:54 Atarax PO 50 mg Q6 PRN Administration Anxiety Methadone HCl 20 mg 02/23/18 10:45 Methadone PO 02/23/18 10:46 ONCE ONE Multivitamins 1 tab 02/23/18 10:45 Hexavitamin PO DAILY TRAVIS Quetiapine Fumarate 100 mg 02/23/18 22:00 Seroquel PO HS TRAVIS Sertraline HCl 50 mg 02/23/18 10:45 Zoloft PO DAILY TRAVIS Thiamine HCl 100 mg 02/23/18 10:45 Vitamin B1 Tab PO DAILY TRAVIS Trazodone HCl 100 mg 02/23/18 10:44 Desyrel PO HS PRN Insomnia Past Psychiatric History - Past Psychiatric History Previous Treatment History: Inpatient Pertinent Medical Hx (Current Medical&Sleep Prob, Allergies): Allergies Allergy/AdvReac Type Severity Reaction Status Date / Time Penicillins Allergy SWELLING Verified 02/22/18 21:08 onion AdvReac ITCHING Verified 02/22/18 21:08 No Known Home Med 09/28/17 Review of Systems - Neurological Neurological: UNREMARKABLE - Psychiatric Psychiatric: Abnormal Sleep Pattern, Anhedonia, Anxiety, Depression, Difficulty Concentrating, Irritability, Mood Swings, Paranoia. absent: Homicidal Ideation Mental Status Examination - Personal Presentation Personal Presentation: Looks older than stated age - Affect Affect: Constricted - Motor Activity Motor Activity: Calm - Reliability in Providing Information Reliability in Providing Information: Fair - Speech Speech: Organized - Mood Mood: Depressed, Anxious - Formal Thought Process Formal Thought Process: No Impairment - Cognitive Functions Orientation: Person, Place, Situation, Time Sensorium: Alert Attention/Concentration: Attentive Estimate of Intelligence: Average Judgement: Intact, as evidence by: Insight regarding need for hospitalization Memory: Recent intact, as evidence by: Ability to recall events of the day, Remote intact, as evidenced by: Abilit to recall sig. life events - Risk Risk: Withdrawal, Diminished functioning - Strength & Assets Inventory Strength & Assets Inventory: Education, Cooperative - Limitations Limitations: Other DSM 5 DX - DSM 5 DSM 5 Diagnosis: Bipolar I disorder, depressed, severe, with psychosis Borderline personality disorder Antisocial personality disorder Opioid withdrawal Opioid use d/o - severe Cocaine use d/o - severe Sedative, hypnotic use d/o- severe Alcohol use d/o - severe Tobacco use d/o - severe Disc hernia Hepatitis C - Recommended/Plan of Treatment Treatment Recommendations and Plan of Treatment: Zolfota nd seroquel for bipolar I depression Taper with methadone and librium Gabapentin for augmentation As needed medications All risks, benefits and alternatives of the meds discussed, and the pt agreed and understood. Attend groups and activities Supportive therapy and psychoeducation [place] for abstinence CBT for relapse prevention Encourage MAT Refer to LT rehab or IOP, and self-help groups Smoking cessation with ID Nicotine patch if needed 34 min Projected ELOS: 7 days Prognosis: fair - Smoking Cessation Smoking Cessation Initiated: Yes
[2018-02-23] MEDS: Multiple Vitamins Tab PO SCH (11:12)
--- NOTE | 2018-02-23 11:25 | PCM.BM ---
<Barbara Hudson - Last Filed: 02/23/18 11:22> Treatment Plan Problems - Problems identified on initial assessmt Depression Date Initiated: 02/23/18 Time Initiated: 00:50 Assessment reference: NA Status: Active Anxiety Date Initiated: 02/23/18 Time Initiated: 00:50 Assessment reference: NA Status: Active Treatment assets and liabiliti Patient Assests: adapts well, cooperative, resourceful, self-reliant, ADL independent, physically healthy, negotiates basic needs, cognitively intact Patient Liabilities: financial problems, poor support system, substance abuse - Milieu Protocol Maintain good personal hygiene: daily Encourage regular showers, daily Remind patient to perform daily oral care, daily Assist patient to perform ADL's Conduct patient checks and document Observation sheet: Q15 minutes Maintain personal safety: every shift Educate patient to report safety concerns to staff, every shift Monitor environment for contraband/sharps Medication safety: Monitor for expected outcome, potential side effects: every shift, Assess barriers to learning: every shift, Assess readiness for medication education: every shift <Tavia Nguyen - Last Filed: 02/23/18 13:48> - Diagnosis (1) Cocaine abuse Status: Acute Interventions: 02/23/18 13:48 * Educate regarding risks, benefits, side effects and alternatives of medications * Use Motivational Interviewing for abstinence * Use CBT for relapse prevention * Medication management for withdrawal symptoms * Encourage medication assisted treatment * (2) Opioid abuse Status: Acute Interventions: 02/23/18 13:48 * Assess 7x/week regarding severity of withdrawal * Educate regarding risks, benefits, side effects and alternatives of medications * Use Motivational Interviewing for abstinence * Use CBT for relapse prevention * Medication management for withdrawal symptoms * Encourage medication assisted treatment * (3) Bipolar disorder, unspecified Status: Acute Interventions: 02/23/18 13:48 * Assess/adjust medications daily and /or as needed * See patient on an individual basis 7x/week to assess level of manic behaviors and stability * Discuss risks, benefits, side effects and alternatives of medications *
[2018-02-24 07:06] VITALS: BP 88/68; PULSE 74; TEMP 98
[2018-02-24] MEDS: Multiple Vitamins Tab PO SCH (09:09)
--- NOTE | 2018-02-24 09:56 | PCM.PYCHDC ---
Mental Status Examination - Mental Status Examination Orientation: Person, Place, Situation, Time Memory: Intact Mood: Anxious Affect: Constricted Speech: Appropriate Attention: WNL Concentration: WNL Association: WNL Fund of Knowledge: WNL Formal Thought Process: No Impairment Suicidal Ideation: No Current Homicidal Ideation?: No Discharge Summary - Discharge Note Reason for Hospitalization: Feeling very depressed and using drugs Psychiatric History (includes Medical, Family, Personal Hx): Numerous admissions , bipolar+personality disorder+polusubstance depend. Consultations:: List each consultation separately and include: 1. Reason for request. 2. Findings. 3. Follow-up Summary of Hospital Course include:: 1. Description of specific treatment plan utilized for patients during their course of treatmen. 2. Summarize the time- course for resolution of acute symptoms and/or regressed behaviors. 3. Describe issues identified and worked on during hospitalization. 4. Describe medication utilized. 5. Describe medical problems identified and treated. 6. Reassessment of suicide risk Summary of Hospital Course: The pt is seen 3x today, chart reviewed and case discussed with the team and administration in detail. On admission: He is well-known to the card writer hand from several previous admissions. He is a 27 yo WM, single, no child, highly educated but unemployed and homeless currently - stays with his mother and [id number] girlfriend who is now but he is not sure if from him, as she allegedly prostitutes for cocaine and opiates. PS. His mother also uses drugs. He says he has been on a cocaine, heroin and xanax binge again for a while. He was discharged from [facility] program after missing 3 days. He now uses 25 bags intranasal heroin, 1 gm cocaine (intranasal), 1 pint alcohol , 4 mg xanax (last use 2 days ago, utox negative), and 1 ppd cigarette. Denies all others. He reports many depressive sxs including suicidal ideation but he contracts for safety and will follow his safety plan. He also admits to feeling paranoid but he is aware that this is not normal. It is very likely due to his heavy drug use. Past psych history: bipolar type 1, polysubstance use d/o, suicide attempt. Patient has history of 7+ prior psychiatric hospitalizations, including other hospitals. PMHx: ACL tear, recent weight loss, asthma, Hep C, disc hernia, weight loss. Family history: Father and brother had opioid use disorder, depression and reportedly committed suicide. Social history: Single, has no child, no legal issues now but had in the past. Hospital course: The pt was admitted and started on treatment with psychotherapy, support, psychoeducation and medications. [place] and CBT used briefly The pt attended few groups and activities, as well as milieu therapy. All the risks and benefits of medications are discussed and the patient understood and agreed. The pt was improving with the treatments provided but on his second night here he allegedly had consensual sex with a female patient and he is discharged from the unit. He first admitted to doing the act (female patient comes to his room, kisses him , they have short intercourse without ejaculation and stop, but he hides her under his blanket when staff was doing 15-min check) but then he recanted it and said he "was likely dreaming and not had sex." However, at the end, he admitted again and got discharged. He understood and agreed. He was no longer suicidal or at imminent risk. [employer] provided prescriptions and his AM doses given to him. After care is also discussed with the patient. He is recommended to return to Methadone Program in [place] or [facility] in [place]. He said he would. Risk of relapse discussed. - Final Diagnosis (DSM 5) Condition upon Discharge: IMPROVED DSM 5: Bipolar I disorder, depressed, severe, with psychosis Borderline personality disorder Antisocial personality disorder Opioid withdrawal Opioid use d/o - severe Cocaine use d/o - severe Sedative, hypnotic use d/o- severe Alcohol use d/o - severe Tobacco use d/o - severe Disc hernia Hepatitis C Disposition: HOME/ ROUTINE Follow-up Treatment Plan: Continue below medications after discharge. Follow after care plan as discussed. Use relapse prevention skills Return to ER or call 911 if suicidal, homicidal or symptoms relapse. Stay away from stress, alcohol and drugs. See primary doctor regularly and get labs. Prescriptions/Medication Reconciliation: Gabapentin [Neurontin] 300 mg PO TID #45 cap QUEtiapine [Seroquel] 100 mg PO HS #15 tab Sertraline [Zoloft] 50 mg PO DAILY #15 tab traZODone [Desyrel] 100 mg PO HS PRN #15 tab PRN Reason: Insomnia - Smoking Cessation Smoking Cessation Medication prescribed: No - Antipsychotic Medications Pt discharged on 2 or more routine antipsychotic medications: No
== END 2018-02-24 12:33 | disposition home or self-care (01) | DRG 430 ==
LOC: C.ER 21:02 → C.5E 02-23
PROC: GZHZZZZ Group Psychotherapy (ICD-10-PCS; principal; 2018-02-23)
PROC: HZ2ZZZZ Detoxification Services for Substance Abuse Treatment (ICD-10-PCS; 2018-02-23)
PROC: HZ52ZZZ Individual Psychotherapy for Substance Abuse Treatment, Cognitive-Behavioral (ICD-10-PCS; 2018-02-23)
PROC: HZ59ZZZ Individual Psychotherapy for Substance Abuse Treatment, Supportive (ICD-10-PCS; 2018-02-23)
PROC: HZ56ZZZ Individual Psychotherapy for Substance Abuse Treatment, Psychoeducation (ICD-10-PCS; 2018-02-23)
PROC: HZ42ZZZ Group Counseling for Substance Abuse Treatment, Cognitive-Behavioral (ICD-10-PCS; 2018-02-23)
PROC: HZ46ZZZ Group Counseling for Substance Abuse Treatment, Psychoeducation (ICD-10-PCS; 2018-02-23)
PROC: GZ58ZZZ Individual Psychotherapy, Cognitive-Behavioral (ICD-10-PCS; 2018-02-23)
PROC: GZ56ZZZ Individual Psychotherapy, Supportive (ICD-10-PCS; 2018-02-23)
DX: F31.5 Bipolar disorder, current episode depressed, severe, with psychotic features (principal); B19.20 Unspecified viral hepatitis C without hepatic coma; F11.23 Opioid dependence with withdrawal; F10.230 Alcohol dependence with withdrawal, uncomplicated; F14.20 Cocaine dependence, uncomplicated; F13.20 Sedative, hypnotic or anxiolytic dependence, uncomplicated; F43.10 Post-traumatic stress disorder, unspecified; F60.2 Antisocial personality disorder; F60.3 Borderline personality disorder; Z59.0 Homelessness; R45.851 Suicidal ideations; F41.9 Anxiety disorder, unspecified; Y90.0 Blood alcohol level of less than 20 mg/100 ml; F17.210 Nicotine dependence, cigarettes, uncomplicated